=== PATIENT | male | born 1995 | race Caucasian/White ===

== ENCOUNTER 2018-03-16 02:02 | Emergency (ER) | payer OTHER, MEDICAID ==
[2018-03-16] MEDS: AZITHROMYCIN 250 MG TAB PO (02:29)
[2018-03-16] MEDS: CEFTRIAXONE 250 MG INJ IM (02:30)
== END 2018-03-16 03:05 | disposition home or self-care (01) ==
LOC: FTE 02:02
DX: Z20.2 Contact with and (suspected) exposure to infections with a predominantly sexual mode of transmission (principal); F17.210 Nicotine dependence, cigarettes, uncomplicated
CPT/HCPCS: 87591; 96372; 99284-25